=== PATIENT | male | born 1960 | race Hispanic/Latino ===

== ENCOUNTER 2017-03-03 19:49 | Emergency (ER) | payer MEDICARE ==
[2017-03-03] MEDS ORDERED: DILAUDID IM ONE (22:02)
[2017-03-03] MEDS ORDERED: BACTROBAN 2% TP ONE ×2 (22:02→23:00)
[2017-03-03] MEDS ORDERED: NACL 0.9% IR ONE (22:04)
--- NOTE | 2017-03-03 22:08 | Emergency Department Report ---
ED Upper Extremity Inj HPI - General Chief Complaint: Extremity Injury, Upper Stated Complaint: LT ELBOW PAIN Time Seen by Provider: 03/03/17 22:01 Source: patient, RN notes reviewed Mode of arrival: Ambulatory Limitations: Physical Limitation - History of Present Illness Initial Comments: This is a 47-year-old male. He is previously unknown to me. He is right-hand dominant. The patient presents to the ER with left elbow pain and swelling after mechanical fall. The patient indicates that he was carrying groceries up, tripped, and fell onto his back, left elbow and head. Prior to the fall, there was no dizziness, lightheadedness, chest pain, shortness of breath. After the fall, the patient complains of pain and swelling to the left elbow. The pain is sharp. It increases with palpation and range of motion. It decreases with rest. The patient has no other injuries, no other complaints, and the patient reports he is up-to-date with tetanus vaccination. MD Complaint: Injury to:: left, elbow -: Sudden Other Extremity Injury: Elbow: Left Other Injuries: none Handedness: right Place: home Improves With: rest Worsens With: movement of extremity Context: fall, direct blow Associated Symptoms: denies other symptoms - Related Data Previous Rx's Medication Instructions Recorded Last Taken Type Ketorolac [Toradol] 10 mg PO Q6H PRN #20 tablet 03/03/17 Unknown Rx oxyCODONE [Roxicodone] 5 mg PO Q6HR PRN #15 tablet 03/03/17 Unknown Rx Allergies Allergy/AdvReac Type Severity Reaction Status Date / Time No Known Allergies Allergy Unverified 03/03/17 20:12 ED Review of Systems ROS: Stated complaint: LT ELBOW PAIN Other details as noted in HPI Constitutional: denies: fever Eyes: denies: vision change ENT: denies: epistaxis Respiratory: denies: cough Cardiovascular: denies: chest pain Gastrointestinal: denies: abdominal pain Genitourinary: as per HPI Musculoskeletal: joint swelling, arthralgia, myalgia Skin: lesions Neurological: denies: headache, weakness, numbness, paresthesias, confusion, abnormal gait, vertigo ED Past Medical Hx - Past Medical History Hx Psychiatric Treatment: Yes (recovered alcoholic) Hx COPD: Yes Additional medical history: malnutrition, failure to thrieve - Surgical History Additional Surgical History: fx vertebre in 4 places,both legs fx,Gastric bypass ,ulcers,brain anuresym,tonsillectomy - Social History Smoking Status: Current Every Day Smoker Substance Use Type: None - Medications Home Medications: Home Medications Medication Instructions Recorded Confirmed Last Taken Type Ketorolac [Toradol] 10 mg PO Q6H PRN #20 tablet 03/03/17 Unknown Rx oxyCODONE [Roxicodone] 5 mg PO Q6HR PRN #15 tablet 03/03/17 Unknown Rx ED Physical Exam - General Limitations: Physical Limitation General appearance: alert, in no apparent distress - Head Head exam: Present: atraumatic, normocephalic - Eye Eye exam: Present: normal appearance, PERRL, EOMI. Absent: nystagmus - ENT ENT exam: Present: normal exam, normal orophraynx, mucous membranes moist, normal external ear exam - Neck Neck exam: Present: normal inspection, full ROM. Absent: tenderness, meningismus - Respiratory Respiratory exam: Present: normal lung sounds bilaterally. Absent: respiratory distress, wheezes, rales, rhonchi, stridor, chest wall tenderness, accessory muscle use, decreased breath sounds, prolonged expiratory - Cardiovascular Cardiovascular Exam: Present: regular rate, normal rhythm, normal heart sounds. Absent: bradycardia, tachycardia, irregular rhythm, systolic murmur, diastolic murmur, rubs, gallop - GI/Abdominal GI/Abdominal exam: Present: soft, normal bowel sounds. Absent: distended, tenderness, guarding, rebound, rigid, pulsatile mass - Rectal Rectal exam: Present: deferred - Extremities Exam Extremities exam: Present: tenderness (the left lateral elbow demonstrates a large skin avulsion, there is no obvious laceration, and there is a hematoma and ecchymosis noted. The compartments are soft, there are 2+ pulses in the bilateral upper extremities, sensation is intact to light touch in the deltoid, median, radial, ulnar distribution on the bilateral upper extremities. 2+ radial pulses are noted in the bilateral upper extremity is, and there is good capillary refill in the left upper extremity.), normal capillary refill, other ( the right upper extremity is unremarkable and nontender. The bilateral lower extremities are nontender and unremarkable. The pelvis is stable. The compartments are soft.). Absent: calf tenderness - Back Exam Back exam: Present: normal inspection, full ROM. Absent: CVA tenderness (L), muscle spasm, paraspinal tenderness, vertebral tenderness - Neurological Exam Neurological exam: Present: alert, oriented X3, normal gait, other (Extraocular movements intact. Tongue midline. No facial droop. Facial sensation intact to light touch in the V1, V2, V3 distribution bilaterally. 5 and 5 strength in 4 extremities.. Sensation is intact to light touch in 4 extremities.). Absent : motor sensory deficit - Psychiatric Psychiatric exam: Present: normal affect, normal mood - Skin Skin exam: Present: abrasion, ecchymosis. Absent: rash ED Course Vital Signs 03/03/17 03/03/17 03/03/17 20:04 22:18 22:33 Temperature 97.6 F 98.4 F Pulse Rate 117 H 98 H 96 H Respiratory 16 16 16 Rate Blood Pressure 126/78 Blood Pressure 147/89 152/96 [Right] O2 Sat by Pulse 97 98 96 Oximetry - Reevaluation(s) Reevaluation #1: 03/03/17 22:19 differential diagnosis: Fracture, dislocation, soft tissue swelling, skin avulsion Assessment and plan: A 57-year-old male status post mechanical fall with isolated left elbow fracture. He is afebrile, with reassuring vital signs, and his tachycardia resolved. He has a GCS of 15, with an adenitis score of 0, and he is clinically sober. Elbow x-ray is interpreted by myself and appreciated, and images are transmitted to the consulting coronary clinical specialist, Dr. Colt Shea who has personally reviewed the patient's images. He recommends placement of a posterior splint, and indicates the patient can follow-up with him this Monday. The patient's skin avulsion will be irrigated with sterile saline, Bactroban will be applied, the patient will be placed in a posterior splint. I had an extensive discussion about the risks, benefits, alternatives of CT scan of the brain. The fall occurred at approximately 2:30 PM, and it is now 10:20 PM. This is approximately 8 hours after the fall. I think it is unlikely that the patient has an intracranial injury, and discussed this with him, and he agrees. Through shared an informed decision making, the patient has declined a CAT scan at a concern of radiation, and I think that this is a reasonable decision. Both the patient and myself feel like it is unlikely that the patient has intracranial bleed or injury, the patient does understand that the risks of a missed intracranial bleed do include , disability, paralysis, and loss of quality of life. The patient is alert and oriented 3, and he exhibits decision -making capacity, and has a nonfocal neurologic examination, and normal neurologic examination. Reevaluation #2: 03/03/17 22:54 splint has been applied. The patient remains neurovascularly intact. I had an extensive discussion with the patient and his brother. His brother feels comfortable watching over him, monitor him for any changes, and indicates that he feels very comfortable caring for him. The patient's tachycardia has resolved, and he will be discharged at this time. ED Medical Decision Making - Lab Data Vital Signs 03/03/17 03/03/17 20:04 22:18 Temperature 97.6 F 98.4 F Pulse Rate 117 H 98 H Respiratory 16 16 Rate Blood Pressure 126/78 Blood Pressure 147/89 [Right] O2 Sat by Pulse 97 98 Oximetry - Radiology Data Radiology results: image reviewed interpreted by me: X-ray of the elbow demonstrate soft tissue swelling, displaced medial humeral fracture, impacted lateral humeral fracture, possible proximal radius fracture. Critical care attestation.: If time is entered above; I have spent that time in minutes in the direct care of this critically ill patient, excluding procedure time. ED Disposition Clinical Impression: Left elbow fracture Disposition: DC-01 TO HOME OR SELFCARE Is pt being admited?: No Does the pt Need Aspirin: No Condition: Stable Instructions: Elbow Fracture in Adults (ED) Additional Instructions: Keep the splint in place. Follow up with orthopedic surgeon Dr. Shea, or any orthopedic surgeon of your preference within the next 3-[address] Shea indicated that he would like to see you in the office next week, please contact his office at 8:30 in the morning to arrange close outpatient follow- up. Take the pain medication as directed. Return to the ER right away with new pain, worsened pain, migration of pain, confusion, projectile vomiting, change in mental status, weakness, numbness. When bathing, cover the splints with a plastic bag. This injury will likely require surgery. Prescriptions: Ketorolac [Toradol] 10 mg PO Q6H PRN #20 tablet PRN Reason: Pain oxyCODONE [Roxicodone] 5 mg PO Q6HR PRN #15 tablet PRN Reason: Pain Referrals: COLT SHEA MD [Staff Physician] - 3-5 Days
[2017-03-03] MEDS ORDERED: TRIPLE ANTIBIOTIC TP ONE ×2 (22:16→22:53)
[2017-03-03 22:34] VITALS: BP 152/96
--- NOTE | 2017-03-04 10:22 | XRay Report ---
LEFT ELBOW THREE VIEWS: 03/03/17 19:49:00 CLINICAL: Fall with pain and swelling of the elbow. FINDINGS: Complex comminuted fracture of the distal humerus with multiple separate bone fragments. There appears to be a supracondylar fracture with avulsion of both medial and lateral condyles. The proximal radius is normal in the lateral view but is not well imaged in the other views. There appears to be a comminuted fracture of the coronoid process of the olecranon. Subluxation or dislocation at the ulnohumeral and radiohumeral joints. The orientation No foreign body or soft tissue air. No skin laceration identified. IMPRESSION: Acute/subacute traumatic closed comminuted fractures of the distal humerus and proximal ulna and subluxation/dislocation at the ulnohumeral and radiohumeral joints. CT of the elbow would be helpful for a better delineation of fractures and to assess for subluxation/dislocation.
== END 2017-03-03 23:07 | disposition home or self-care (01) ==
LOC: ED 19:49
DX: S42.402A Unspecified fracture of lower end of left humerus, initial encounter for closed fracture (principal); J44.9 Chronic obstructive pulmonary disease, unspecified; F17.210 Nicotine dependence, cigarettes, uncomplicated; W01.0XXA Fall on same level from slipping, tripping and stumbling without subsequent striking against object, initial encounter; Y93.89 Activity, other specified; Y92.89 Other specified places as the place of occurrence of the external cause; Y99.8 Other external cause status
CPT/HCPCS: 29105; 73080; 96372; 99283; J1170; A6250